=== PATIENT | female | born 1945 | race Caucasian/White ===

== ENCOUNTER → 2025-03-23 | Outpatient (CLI) | payer MEDICARE, MEDICAID ==
[~2025-03-23] MED LIST: ASPI81TA26 PO; HYDR-3490 PO; LOSA100T46 PO; VERA240C PO
== END ==
LOC: M WHC 09:01
PROVIDERS: ATTEND Surgery
DX: R92.8 Other abnormal and inconclusive findings on diagnostic imaging of breast (principal); Z85.3 Personal history of malignant neoplasm of breast; R92.313 Mammographic fatty tissue density, bilateral breasts
CPT/HCPCS: 76642; 77065; G0279